=== PATIENT | female | born 1955 | race Caucasian/White ===

== ENCOUNTER 2017-08-04 07:31 | Emergency (ER) | payer OTHER ==
[~2017-08-04] VITALS: Ht 147.3 cm; Wt 72.6 kg
[~2017-08-04 07:31] MED LIST: ACETAMINOPHEN-1 EAC1 PO; AMBIEN 5 MG TABL5 M1 PO; EFFEXOR XR150 MG PO; FLEXERIL PO; MEDROLDOSEPACK PO; NORCO 5-325 TA1 EACH PO; PHENERGAN 25 MG25 MG PO; PROAIR HFA8.5 GM IH; XANAX 0.5 MG0.5 MG PO
[2017-08-04] MEDS ORDERED: DICLOFENAC SODI25 MG PO (07:48)
[2017-08-04] MEDS ORDERED: COZAAR 50 MG TA50 M1 PO (07:48)
[2017-08-04 08:32] LABS: INFLUENZA B ANTIGEN None Detected (None Detect)
[2017-08-04] MEDS ORDERED: PROMETHAZINE/C118 ML PO (08:49)
[2017-08-04] MEDS ORDERED: MUCINEX DM ER1 EACH PO (09:12)
[2017-08-04 09:15] VITALS: BP 133/75
== END 2017-08-04 09:16 | disposition home or self-care (01) ==
LOC: M.ERS 07:31
PROVIDERS: Personal Emergency Response Attendant
DX: J09.X2 Influenza due to identified novel influenza A virus with other respiratory manifestations (principal); I10 Essential (primary) hypertension; G43.909 Migraine, unspecified, not intractable, without status migrainosus; Z98.890 Other specified postprocedural states; Z88.2 Allergy status to sulfonamides

== ENCOUNTER → 2018-04-08 | Outpatient (CLI) | payer OTHER ==
[~2018-04-08] MED LIST changes: +COZAAR 50 MG TA50 M1 PO; +DICLOFENAC SODI25 MG PO; +MUCINEX DM ER1 EACH PO; +PROMETHAZINE/C118 ML PO
== END ==
LOC: M.ULTRA 16:00
DX: I10 Essential (primary) hypertension (principal); K51.90 Ulcerative colitis, unspecified, without complications; G43.909 Migraine, unspecified, not intractable, without status migrainosus

== ENCOUNTER → 2018-08-25 | Outpatient (CLI) | payer OTHER ==
[2018-08-25 07:24] LABS: HEMATOCRIT 41.3 % (37.0-47.0); HEMOGLOBIN 13.5 gm/dL (12.0-15.0); MCH 27.2 pg (26.0-34.0); MCHC 32.8 g/dL (28.0-37.0); MPV 7.4 fl. (7.2-11.1); RBC 4.98 mil/uL (4.20-5.00); RDW-CV 13.7 % (10.5-14.5); WBC 7.7 thou/uL (4.0-11.0)
[2018-08-25 07:29] LABS: URINE BILIRUBIN NEGATIVE (Negative); URINE BLOOD TRACE (Negative); URINE CLARITY SL CLOUDY; URINE COLOR YELLOW; URINE GLUCOSE-RANDOM NEGATIVE (Negative); URINE KETONES NEGATIVE (Negative); URINE LEUKOCYTES 2+ (Negative); URINE NITRITE NEGATIVE (Negative); URINE PROTEIN NEGATIVE (Negative); URINE UROBILINOGEN 0.2 E.U./dl (0.2-1.0)
[2018-08-25 07:34] LABS: SQUAMOUS >10 Many /LPF (0-3); URINE RBC None Seen /HPF (0-2); URINE WBC 6-15 Few /HPF (0-5)
[2018-08-25 07:35] LABS: BACTERIA >30 Many /HPF (None Seen); CASTS None Seen /LPF (None Seen); CRYSTALS None Seen /LPF (None Seen)
[2018-08-25 07:38] LABS: ALBUMIN 3.6 g/dL (3.4-5.0); ALKALINE PHOSPHATASE 128 U/L (46-116); ANION GAP 6 mmol/L (7-16); BUN 25 mg/dL (7-18); CALCIUM 9.9 mg/dL (8.5-10.1); CHLORIDE 102 mmol/L (98-107); CHOLESTEROL 235 mg/dL (<200); CO2 29 mmol/L (21-32); CREATININE 1.2 mg/dL (0.6-1.3); GLUCOSE 95 mg/dL (70-99); HDL CHOLESTEROL 64 mg/dL (>40); LDL CHOLESTEROL 130 mg/dL (<100); POTASSIUM 3.9 mmol/L (3.5-5.1); SERUM ASSESSMENT Clear; SGOT 25 U/L (15-37); SGPT 46 U/L (30-65); SODIUM 137 mmol/L (136-145); TC:HDL 3.7 Ratio (Not establshd); TOTAL BILIRUBIN 0.2 mg/dL (<0.1-1.0); TOTAL PROTEIN 7.6 g/dL (6.4-8.2); TRIGLYCERIDE 208 mg/dL (<150); VLDL 42 mg/dL (<40)
== END ==
LOC: M.LAB 03:24
PROVIDERS: Family Medicine
DX: I10 Essential (primary) hypertension (principal)

== ENCOUNTER → 2019-05-24 | Outpatient (CLI) | payer OTHER ==
[2019-05-24 08:16] LABS: URINE BILIRUBIN NEGATIVE (Negative); URINE BLOOD NEGATIVE (Negative); URINE CLARITY CLEAR; URINE COLOR YELLOW; URINE GLUCOSE-RANDOM NEGATIVE (Negative); URINE KETONES NEGATIVE (Negative); URINE LEUKOCYTES 1+ (Negative); URINE NITRITE NEGATIVE (Negative); URINE PROTEIN NEGATIVE (Negative); URINE SPECIFIC GRAVITY >= 1.030 (1.005-1.030); URINE UROBILINOGEN 0.2 E.U./dl (0.2-1.0)
[2019-05-24 08:18] LABS: ABSOLUTE BASOPHILS 0.1 thou/uL (0.0-0.2); ABSOLUTE EOSINOPHILS 0.2 thou/uL (0.0-0.7); ABSOLUTE LYMPHOCYTES 1.8 thou/uL (0.8-5.3); ABSOLUTE MONOCYTES 0.5 thou/uL (0.0-1.2); ABSOLUTE NEUTROPHILS 7.7 thou/uL (1.6-8.1); BASOPHILS 0.7 %; EOSINOPHILS 1.5 %; HEMATOCRIT 41.8 % (37.0-47.0); LYMPHOCYTES 17.4 %; MCH 28.3 pg (26.0-34.0); MCHC 33.6 g/dL (28.0-37.0); MCV 84.5 fL (80.0-100.0); MONOCYTES 5.2 %; MPV 7.5 fl. (7.2-11.1); NUCLEATED RBCS 0 /100WBC; PLATELET COUNT* 372 thou/uL (150-400); POLYS 75.2 %; RBC 4.95 mil/uL (4.20-5.00); RDW-CV 13.4 % (10.5-14.5); WBC 10.2 thou/uL (4.0-11.0)
[2019-05-24 08:26] LABS: CASTS None Seen /LPF (None Seen); CRYSTALS None Seen /LPF (None Seen); MUCUS None Seen strn/LPF (None Seen); SQUAMOUS >10 Many /LPF (0-3); URINE RBC 0-2 Rare /HPF (0-2); URINE WBC 6-15 Few /HPF (0-5)
[2019-05-24 08:28] LABS: ALBUMIN 3.9 g/dL (3.4-5.0); ALKALINE PHOSPHATASE 119 U/L (46-116); ANION GAP 9 mmol/L (7-16); BUN 31 mg/dL (7-18); CALCIUM 9.3 mg/dL (8.5-10.1); CHLORIDE 105 mmol/L (98-107); CHOLESTEROL 264 mg/dL (<200); CO2 27 mmol/L (21-32); GLUCOSE 93 mg/dL (70-99); HDL CHOLESTEROL 75 mg/dL (>40); LDL CHOLESTEROL 159 mg/dL (<100); POTASSIUM 4.1 mmol/L (3.5-5.1); SERUM ASSESSMENT Clear; SGOT 22 U/L (15-37); SGPT 41 U/L (30-65); SODIUM 141 mmol/L (136-145); TC:HDL 3.5 Ratio (Not establshd); TOTAL BILIRUBIN 0.2 mg/dL (<0.1-1.0); TOTAL PROTEIN 7.8 g/dL (6.4-8.2); TRIGLYCERIDE 150 mg/dL (<150); VLDL 30 mg/dL (<40)
[2019-05-24 10:11] LABS: ESR (SEDRATE) 38 mm/hr (0-30)
== END ==
LOC: M.LAB 07:54
PROVIDERS: Family Medicine
DX: I10 Essential (primary) hypertension (principal); K51.919 Ulcerative colitis, unspecified with unspecified complications; Z68.29 Body mass index [BMI] 29.0-29.9, adult

== ENCOUNTER → 2019-06-02 | Outpatient (CLI) | payer OTHER | LOC: M.RAD 02:40 | DX: M47.894 Other spondylosis, thoracic region (principal); M25.78 Osteophyte, vertebrae; M51.34 Other intervertebral disc degeneration, thoracic region; M76.891 Other specified enthesopathies of right lower limb, excluding foot; M54.5 Low back pain ==

== ENCOUNTER 2020-05-23 13:12 | Emergency (ER) | payer OTHER ==
[~2020-05-23] VITALS: Ht 152.4 cm; Wt 68.0 kg
[2020-05-23] MEDS ORDERED: BENICAR20 MG PO (13:27)
[2020-05-23 14:02] LABS: ABSOLUTE BASOPHILS 0.1 thou/uL (0.0-0.2); ABSOLUTE EOSINOPHILS 0.4 thou/uL (0.0-0.7); ABSOLUTE LYMPHOCYTES 1.6 thou/uL (0.8-5.3); ABSOLUTE MONOCYTES 0.7 thou/uL (0.0-1.2); ABSOLUTE NEUTROPHILS 6.4 thou/uL (1.6-8.1); BASOPHILS 1.2 %; EOSINOPHILS 4.9 %; HEMATOCRIT 41.2 % (37.0-47.0); HEMOGLOBIN 13.7 gm/dL (12.0-15.0); LYMPHOCYTES 16.8 %; MCH 27.7 pg (26.0-34.0); MCHC 33.2 g/dL (28.0-37.0); MCV 83.5 fL (80.0-100.0); MONOCYTES 7.5 %; NUCLEATED RBCS 0 /100WBC; PLATELET COUNT* 357 thou/uL (150-400); POLYS 69.6 %; RBC 4.94 mil/uL (4.20-5.00); RDW-CV 12.9 % (10.5-14.5); WBC 9.2 thou/uL (4.0-11.0)
[2020-05-23 14:13] LABS: CALCIUM 9.2 mg/dL (8.5-10.1); CREATININE 1.4 mg/dL (0.6-1.3)
[2020-05-23 14:17] LABS: ALBUMIN 3.4 g/dL (3.4-5.0); TOTAL BILIRUBIN 0.1 mg/dL (<0.1-1.0); TOTAL PROTEIN 7.5 g/dL (6.4-8.2)
[2020-05-23 14:39] LABS: INR 0.9; PROTIME 9.7 Seconds (9.20-11.50)
[2020-05-23 14:40] LABS: APTT 23.3 Seconds (25.0-31.3)
[2020-05-23 14:53] LABS: INFLUENZA A ANTIGEN Negative (Negative); INFLUENZA B ANTIGEN Negative (Negative)
[2020-05-23] MEDS ORDERED: ZPAK PO (15:23)
[2020-05-23] MEDS ORDERED: MEDROLDOSEPACK PO (15:23)
[2020-05-23 15:34] VITALS: BP 125/71
--- NOTE | 2020-05-24 11:26 | EKG ---
[place] [address] ELECTROCARDIOGRAM REPORT Name: SWAPNIL WINSTON Room: [facility]#: [id number] Admission: 05/23/20 Attend Phys: Discharge: 05/23/20 Date of : 57 Date of Service: 05/23/20 1323 Report #: [id number] THIS REPORT FOR: //name// [facility] ED Test Date: 2020-05-23 Test Time: 13:23:24 Pat Name: SWAPNIL WINSTON Department: Room: Gender: Registered Pharmacy Technician: : [id number] Requested By: Trixie Vazquez Order Number: [id number] MD: Alex Sorto Measurements Intervals [place] Rate: 98 P: 60 OK: 135 QRS: 76 QRSD: 74 T: 62 QT: 333 QTc: 426 Interpretive Statements Sinus rhythm Probable left atrial enlargement No previous ECG available for comparison Electronically Signed On 05-24-2020 11:25:54 [employer]PERATING [employer] by Alex Sorto [email or web address] <ELECTRONICALLY SIGNED> By: Alex Sorto MD, [facility] 05/24/20 1125 1323 1323 Alex Sorto MD, FACC /EPI
== END 2020-05-23 15:35 | disposition home or self-care (01) ==
LOC: M.ERS 13:12
PROVIDERS: Personal Emergency Response Attendant
DX: J40 Bronchitis, not specified as acute or chronic (principal); Z20.828 Contact with and (suspected) exposure to other viral communicable diseases; G43.909 Migraine, unspecified, not intractable, without status migrainosus; I10 Essential (primary) hypertension; Z88.2 Allergy status to sulfonamides

== ENCOUNTER → 2020-07-20 | Outpatient (CLI) | payer OTHER ==
[~2020-07-20] MED LIST changes: +BENICAR20 MG PO; +ZPAK PO
[2020-07-20 08:38] LABS: ALBUMIN 3.7 g/dL (3.4-5.0); CALCIUM 9.2 mg/dL (8.5-10.1); CREATININE 1.3 mg/dL (0.6-1.3); POTASSIUM 3.9 mmol/L (3.5-5.1); TOTAL BILIRUBIN 0.2 mg/dL (<0.1-1.0); TOTAL PROTEIN 7.4 g/dL (6.4-8.2)
== END ==
LOC: M.LAB 01:30
PROVIDERS: ATTEND Family Medicine
DX: U07.1 COVID-19 (principal); N28.9 Disorder of kidney and ureter, unspecified